=== PATIENT | female | born 1995 | race Caucasian/White ===

== ENCOUNTER 2017-10-01 08:19 | Emergency (ER) | payer OTHER ==
[~2017-10-01] VITALS: Ht 162.6 cm; Wt 82.6 kg
[2017-10-01 08:28] VITALS: BP 140/76
--- NOTE | 2017-10-01 08:32 | NUR ---
EVALUATING PT AT BEDSIDE
--- NOTE | 2017-10-01 08:34 | NUR ---
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 ER MD MADE AWARE OF PT STATUS.
--- NOTE | 2017-10-01 08:42 | NUR ---
XRAY AT BEDSIDE.
[2017-10-01 09:05] VITALS: BP 108/66
--- NOTE | 2017-10-01 09:05 | NUR ---
Patient discharged with v/s stable. Written and verbal after care instructions given and explained. Patient verbalized understanding. Ambulatory with steady gait. All questions addressed prior to discharge. Advised to follow up with PMD.
== END 2017-10-01 09:05 | disposition home or self-care (01) ==
LOC: MED 08:19
DX: S90.121A Contusion of right lesser toe(s) without damage to nail, initial encounter (principal); W22.8XXA Striking against or struck by other objects, initial encounter; Y93.89 Activity, other specified; Y92.89 Other specified places as the place of occurrence of the external cause; Y99.8 Other external cause status
CPT/HCPCS: 73630; 81025; 99284; Q0092

== ENCOUNTER 2022-01-08 13:58 | Emergency (ER) | payer OTHER ==
[~2022-01-08] VITALS: Ht 160 cm; Wt 91.6 kg
[2022-01-08 14:11] VITALS: BP 126/88
[2022-01-08 15:25] LABS: BASOPHILS % (AUTO) 0.6 % (0.0-2.0); EOSINOPHILS # (AUTO) 0.1 K/uL (0-0.4); EOSINOPHILS % (AUTO) 1.5 % (0.0-4.0); HEMATOCRIT 29.8 % (36-48); HEMOGLOBIN 9.3 g/dL (12.0-16.0); LYMPHOCYTES # (AUTO) 2.2 K/uL (2.5-16.5); MEAN CORPUSCULAR HEMOGLOBIN 21 pg (27-31); MEAN CORPUSCULAR HGB CONC 31 g/dL (33-37); MEAN CORPUSCULAR VOLUME 65.4 fL (80-94); MONOCYTES # (AUTO) 0.4 K/uL (0.8-1.0); MONOCYTES % (AUTO) 6.9 % (1.7-9.3); NEUTROPHILS # (AUTO) 3.6 K/uL (1.8-7.7); PLATELET COUNT (AUTO) 266 K/uL (140-450); RED BLOOD CELL COUNT(AUTO) 4.56 MIL/uL (4.20-5.40); RED CELL DISTRIBUTION WIDTH 16.6 % (11.6-13.7); WHITE BLOOD COUNT (AUTO) 6.4 K/uL (4.8-10.8)
[2022-01-08 15:42] LABS: ALBUMIN 3.9 g/dL (3.4-5.0); ANION GAP 10.9 (8-16); CARBON DIOXIDE 27.4 mmol/L (21-32); CREATININE 0.5 mg/dL (0.6-1.3); POTASSIUM 4.3 mmol/L (3.5-5.1); TOTAL BILIRUBIN 0.2 mg/dL (0.0-1.0)
--- NOTE | 2022-01-08 16:39 | NUR ---
PT AMBULATED TO CHAIR C
--- NOTE | 2022-01-08 16:45 | NUR ---
PT TAKEN TO CT VIA WHEELCHAIR
--- NOTE | 2022-01-08 16:49 | NUR ---
26YO FEMALE PT C/O ABDOMINAL PAIN DUE TO CONSTIPATION. PT STATES CONSTIPATION X3 MONTHS. PT STATES TRYING ENEMAS , NO RELIEF. PT WAS SEEN BY HER PCP December AND GIVEN DOCUSATE SODIUM , HAD NO RELIEF. PT STATES GETTING CT SCAN DONE BUT WONT GET RESULTS UNTIL 2 WEEKS FROM NOW. PT ADBOMEN TENDER TO TOUCH , BOWEL SOUNDS ACTIVE X4. PT AAOX4 , ALL VITALS WITHIN NORMAL RANGE. ALL NEEDS MET AT THIS TIME SANDRA GERONIMO
[2022-01-08] MEDS ORDERED: LACT-103 PO (19:30)
[2022-01-08 19:47] VITALS: BP 122/84
--- NOTE | 2022-01-08 19:47 | NUR ---
Patient discharged with v/s stable. Written and verbal after care instructions given and explained. Patient alert, oriented and verbalized understanding of instructions. Ambulatory with steady gait. All questions addressed prior to discharge. ID band removed. Patient advised to follow up with PMD. Rx of Lactulose given. Patient educated on indication of medication including possible reaction and side effects. Opportunity to ask questions provided and answered.
== END 2022-01-08 19:47 | disposition home or self-care (01) ==
LOC: MED 13:58
DX: K59.00 Constipation, unspecified (principal); R11.0 Nausea; R63.0 Anorexia; Z79.899 Other long term (current) drug therapy
CPT/HCPCS: 36415; 80053; 81002; 81025; 83690; 85025; 99284

== ENCOUNTER 2024-02-22 14:02 | Emergency (ER) | payer OTHER ==
[~2024-02-22] VITALS: Ht 193 cm; Wt 83.5 kg
[~2024-02-22 14:02] MED LIST: LACT-191 PO
[2024-02-22 14:18] VITALS: BP 120/79; PULSE 99; RESP 19; TEMP 98.3; O2SAT 97
[2024-02-22] MEDS ORDERED: CIPR500T4 PO (15:40)
[2024-02-22] MEDS ORDERED: ONDA8TAB87 PO (15:40)
[2024-02-22] MEDS: ONDANSETRON 4 MG ODT PO ONE (15:53)
[2024-02-22] MEDS: KETOROLAC 60 MG/2 ML VIAL IM ONE (15:53)
[2024-02-22 16:03] VITALS: BP 122/82; PULSE 66; RESP 16; TEMP 98.1; O2SAT 99
== END 2024-02-22 16:03 | disposition home or self-care (01) ==
LOC: MED 14:02
DX: N39.0 Urinary tract infection, site not specified (principal); R11.0 Nausea; Z79.899 Other long term (current) drug therapy
CPT/HCPCS: 81002; 81025; 87086; 96372; 99283; J1885; Q0162; 87186